=== PATIENT | female | born 1980 | race Caucasian/White ===

== ENCOUNTER 2021-03-10 13:01 | Inpatient (IN) | payer OTHER ==
[~2021-03-10] VITALS: Ht 165.1 cm; Wt 95.5 kg
[2021-03-10 13:30] LABS: BASOPHILS ABSOLUTE AUTO 0.08 K/mm3 (0.00-0.23); BASOPHILS PERCENT AUTO 1 % (0-2); EOSINOPHILS ABSOLUTE AUTO 0.03 K/mm3 (0.00-0.68); EOSINOPHILS PERCENT AUTO 0 % (0-6); Hematocrit 42.7 % (33.0-51.0); Hemoglobin 14.6 g/dL (11.5-16.0); IMMATURE GRAN ABSOLUTE AUTO 0.03 K/mm3 (0.00-0.10); IMMATURE GRAN PERCENT AUTO 0 % (0-1); LYMPHOCYTES ABSOLUTE AUTO 0.92 K/mm3 (0.84-5.20); LYMPHOCYTES PERCENT AUTO 8 % (21-46); MONOCYTES ABSOLUTE AUTO 0.78 K/mm3 (0.16-1.47); MONOCYTES PERCENT AUTO 7 % (4-13); Mean Corpuscular HGB 27.8 pg (26.0-34.0); Mean Corpuscular HGB Conc 34.2 g/dL (31.5-36.5); Mean Corpuscular Volume 81 fL (80-100); Mean Platelet Volume 9.9 fL (9.1-12.4); NEUTROPHILS PERCENT AUTO 84 % (41-73); Platelet Count 514 K/mm3 (150-400); RDW Coefficient Variation 14.3 % (11.7-14.2); RDW Standard Deviation 41.8 fL (35.1-46.3); Red Blood Cell Count 5.26 M/mm3 (3.80-5.20); White Blood Cell Count 11.24 K/mm3 (4.00-11.30)
[2021-03-10] MEDS ORDERED: ATOR20 PO (13:45)
[2021-03-10] MEDS ORDERED: TOPROL XL200 MG PO (13:45)
[2021-03-10] MEDS ORDERED: FERROUS SULFAT325 M3 PO (13:46)
[2021-03-10] MEDS ORDERED: METF500 PO (13:46)
[2021-03-10] MEDS ORDERED: LISI20 PO (13:47)
[2021-03-10] MEDS ORDERED: GLIP10 PO (13:47)
[2021-03-10] MEDS ORDERED: AMLO5 PO (13:47)
[2021-03-10] MEDS ORDERED: HYDCHL25 PO (13:47)
[2021-03-10 14:15] LABS: Albumin, Blood 2.9 g/dL (3.4-5.0); Albumin/Globulin Ratio 0.5 (0.8-1.8); Bilirubin, Total 0.5 mg/dL (0.1-1.0); Bun/Creatinine Ratio 10.5 (12.0-20.0); Calcium, Blood 9.4 mg/dL (8.5-10.1); Creatinine, Blood 8.55 mg/dL (0.40-1.00); Globulin, Blood 5.7 g/dL (2.2-4.0); Potassium, Blood 2.9 mmol/L (3.5-5.5); Total Protein, Blood 8.6 g/dL (6.4-8.2)
[2021-03-10 14:58] LABS: Magnesium, Blood 1.8 mg/dL (1.6-2.4); Phosphorus, Blood 6.7 mg/dL (2.5-4.9)
[2021-03-10 15:16] LABS: Base Excess Venous -8.8 mmol/L; Bicarbonate Venous 18.3 mmol/L (24.0-30.0); PCO2 Venous 32.9 mmHg (38-42); PO2 Venous 108 mmHg (38-42); pH Blood Venous 7.33 (7.34-7.37)
[2021-03-10 15:20] LABS: Influenza A, PCR NEGATIVE (NEGATIVE); Influenza B, PCR NEGATIVE (NEGATIVE); Resp Syncytial Virus, PCR NEGATIVE (NEGATIVE); SARS-Cov-2 (COVID-19) PCR, MMC POSITIVE (NEGATIVE)
[2021-03-10 15:24] LABS: Source, Urine Clean Catch
[2021-03-10 15:29] LABS: Appearance, Urine Hazy (Clear); Bilirubin, Urine Neg (Neg); Blood, Urine 2+ (Neg); Color, Urine Yellow (P-Yellow); Glucose Qualitative, Urine 2+ (Neg); Ketones, Urine 1+ (Neg); Leukocyte Esterase, Urine 1+ (Neg); Nitrite, Urine Neg (Neg); Protein, Urine 2+ (Neg); Urobilinogen, Urine NORM (Normal)
[2021-03-10 15:40] LABS: Amorphous Light (0-Heavy); Bacteria Mod /hpf; Squamous Epithelial Cells Few /hpf (Few); Transitional Epithelial Cells Few /hpf (0-Rare)
[2021-03-10 16:12] LABS: Triglycerides 593 mg/dL (30-160)
--- NOTE | 2021-03-10 19:25 | NUR ---
Mrs Cameron Logan is 41 year old female with history significant for diabetes type 2 , hypertension and hyperlipidemia who is admitted for acute kidney injury related to nausea and vomiting that is ongoing for several days. Patient initially presented to ER with nausea and vomiting and unable to hold food in her abdomen.Lab result from ER shows elevated lipase 1609 , triglyceride 593 , BUN 90 , creatinine 8.[address] shows bilateral covid/PNA. She was transferred to medical floor room 328 for further evaluation and treatment. During admission assessment, patient is alert and oriented x4 ,able to verbalize needs. Reports that for past two weeks she has nausea and vomiting and is especially worse in the last two days. Reports that mid abdomen pain is improved but still could not eat due to nausea and vomiting. She reports taking hypertensive medications , diabetes meds and lipitor for hyperlipidemia. Denies any shortness of breath , headache ,chest pain and dizziness. Blood glucose was 251 , 3 units lispro was given. IV NS infusing at 150 ml/hr concurrently with potassium. Tele monitor is place , with sinus rhythm 90s. On clear liquid diet . On isolation for COVID-19 positive result. Vital signs are stable. Call light within reach. Continue to monitor.
[2021-03-10 19:37] LABS: Bun/Creatinine Ratio 13.1 (12.0-20.0); Calcium, Blood 8.3 mg/dL (8.5-10.1); Creatinine, Blood 6.59 mg/dL (0.40-1.00); Potassium, Blood 3.6 mmol/L (3.5-5.5)
[2021-03-11 00:37] LABS: Source, Urine Clean Catch
[2021-03-11 01:19] LABS: Appearance, Urine Clear (Clear); Bilirubin, Urine Neg (Neg); Blood, Urine 2+ (Neg); Color, Urine Yellow (P-Yellow); Glucose Qualitative, Urine 3+ (Neg); Ketones, Urine 1+ (Neg); Leukocyte Esterase, Urine Neg (Neg); Nitrite, Urine Neg (Neg); Protein, Urine 1+ (Neg); Urobilinogen, Urine NORM (Normal)
[2021-03-11 01:30] LABS: U Amphetamine Screen Not Detected; U Barbituate Screen Not Detected; U Benzodiazapine Screen Not Detected; U Buprenorphine Screen Not Detected; U Cannabinoids Screen Not Detected; U Cocaine Screen Not Detected; U Methadone Screen Not Detected; U Methamphetamine Screen Not Detected; U Opiates Screen Not Detected; U Oxycodone Screen Not Detected; U Phencyclidine Screen Not Detected; U Propoxyphene Screen Not Detected
[2021-03-11 01:36] LABS: Amorphous Light (0-Heavy); Bacteria Mod /hpf; Red Blood Cells, Urine 0-2 /hpf (0-2); Squamous Epithelial Cells Few /hpf (Few); Uric Acid Crystals Few /hpf
--- NOTE | 2021-03-11 04:36 | NUR ---
SHIFT SUMMARY AOX4. VSS. TELE NSR. DENIES PAIN, SOB OR ANY NAUSEA @THIS TIME. PT ABLE TO TOLERATE PO FLUIDS W/O ANY EMESIS. COVID +. SPO2 >95% ON RA. E/U RESP. LS DIM IN BASES. OCC DRY NONPRODUCTIVE COUGH. CALL LIGHT IN REACH. WCTM UNTIL DAY NURSE ASSUMES CARE.
[2021-03-11 06:21] LABS: Albumin, Blood 2.6 g/dL (3.4-5.0); Albumin/Globulin Ratio 0.6 (0.8-1.8); Bilirubin, Total 0.5 mg/dL (0.1-1.0); Bun/Creatinine Ratio 15.7 (12.0-20.0); Calcium, Blood 8.3 mg/dL (8.5-10.1); Creatinine, Blood 4.72 mg/dL (0.40-1.00); Globulin, Blood 4.5 g/dL (2.2-4.0); Magnesium, Blood 1.4 mg/dL (1.6-2.4); Phosphorus, Blood 3.9 mg/dL (2.5-4.9); Potassium, Blood 3.7 mmol/L (3.5-5.5); Total Protein, Blood 7.1 g/dL (6.4-8.2)
[2021-03-11 07:01] LABS: Hematocrit 38.6 % (33.0-51.0); Mean Corpuscular HGB Conc 33.7 g/dL (31.5-36.5); Mean Corpuscular Volume 83 fL (80-100); Mean Platelet Volume 10.4 fL (9.1-12.4); Platelet Count 452 K/mm3 (150-400); RDW Coefficient Variation 14.4 % (11.7-14.2); RDW Standard Deviation 43.3 fL (35.1-46.3); Red Blood Cell Count 4.65 M/mm3 (3.80-5.20); White Blood Cell Count 8.12 K/mm3 (4.00-11.30)
[2021-03-11 16:20] LABS: Creatinine, Urine Random 90.2 mg/dL (27.00-270.00)
--- NOTE | 2021-03-11 17:18 | NUR ---
SHIFT SUMMARY PT IS A&O, PLEASANT AND CO-OP. UP INDEPENDENTLY TO BTHRM. PT ON CLEAR LIQUID DIET AT START OF SHIFT. TOLERATED WELL AND REQUESTED DIET TO BE ADVANCED, PER ORDERS. ADVANCED TO SOFT/FULL LIQUID PER REQUEST. PT TOLERATED WELL TO PRESENT. PT REPORTED THAT SHE WASN'T READY TO GO TO REGULAR FOOD JUST YET, BUT DID REPORT BEING HUNGRY NOW. NO N/V/D THIS SHIFT. PT ON IVF'S AT START OF SHIFT UNTIL 12:[address] NEAL IN TO SEE PT AT 1400. IVF'S CHANGED TO LR AT [address] DOWN AT THAT TIME, NOT ALLOWING ORDERS TO GO THRU. LR DELAYED ONE HR. PT DRINKING WELL ALL DAY. URINE CX'S ORDERED AND SENT. SR ON TELE. NO C/O PAIN OR DIFFICULTY. DENIES FURTHER NEEDS AT THIS TIME. CALL LT IN REACH.
--- NOTE | 2021-03-12 04:34 | NUR ---
SHIFT SUMMARY PATIENT HAD NO ACUTE CHANGES. AXOX 4 AND INDEPENDENT IN ROOM. PIV REMAINS INTACT. LR INFUSING AT 75mL/HR. FOOD AND BEVERAGE MANAGER REPORTS NSR 80. ON ROOM AIR STATING 92% ON CONTINUOUS PULSE OXIMETRY. HR DROPS TO HIGH 40'S SLEEPING AT TIMES AND BACK INTO THE 50'S PLUS AWAKE. DENIES PAIN, SOB, AND N/V. VSS/AFEBRILE. COOPERATIVE WITH CARE. CALL LIGHT IN REACH. BED IN LOWEST POSITION. WILL CONTINUE TO MONITOR UNTIL DAY SHIFT NURSE ASSUMES CARE.
[2021-03-12 05:23] LABS: Base Excess Venous 0.2 mmol/L; Bicarbonate Venous 24.3 mmol/L (24.0-30.0); PCO2 Venous 40.9 mmHg (38-42); PO2 Venous 53.4 mmHg (38-42)
[2021-03-12 05:56] LABS: Bun/Creatinine Ratio 20.4 (12.0-20.0); Creatinine, Blood 2.25 mg/dL (0.40-1.00); Potassium, Blood 2.9 mmol/L (3.5-5.5)
--- NOTE | 2021-03-12 15:46 | NUR ---
SHIFT SUMMARY NO ACUTE CHANGES TO PRESENT. PT CONTINUES TO IMPROVE. EATING AND DRINKING WELL AND TOLERATING DIET. UP INDEPENDENTLY TO BTHRM AND AROUND RM. SITTING IN CHAIR AT BS FOR MEALS. IVF'S CONTINUE TO INFUSE PER EMAR. KIDNEY FUNCTION IMPROVING; SEE CHART. NO C/O. DENIES FURTHER NEEDS. CALL LT IN REACH. POSSIBLE D/C TOMORROW.
--- NOTE | 2021-03-13 04:40 | NUR ---
A/OX4. PIV RT AC LR @75mL/hr, INDEPENDENT IN ROOM, RA, BLOOD GLUCOSE RISING DURING 03/12 - MD NOTIFIED & CHANGED LOW SS TO MEDIUM. POSSIBLE DC 03/13.
[2021-03-13 06:20] LABS: Bun/Creatinine Ratio 19.4 (12.0-20.0); Calcium, Blood 7.9 mg/dL (8.5-10.1); Creatinine, Blood 1.55 mg/dL (0.40-1.00); Phosphorus, Blood 2.9 mg/dL (2.5-4.9)
[2021-03-13 06:36] LABS: Magnesium, Blood 0.8 mg/dL (1.6-2.4)
--- NOTE | 2021-03-13 06:50 | NUR ---
NIGHT HOSPITALIST WAS CALLED ABOUT MG OF 0.8 BUT THERE WAS NO RETURN CALL.
[2021-03-13 13:48] LABS: Bun/Creatinine Ratio 18.8 (12.0-20.0); Calcium, Blood 7.8 mg/dL (8.5-10.1); Creatinine, Blood 1.33 mg/dL (0.40-1.00); Magnesium, Blood 1.9 mg/dL (1.6-2.4)
[2021-03-14 05:30] LABS: BASOPHILS ABSOLUTE AUTO 0.07 K/mm3 (0.00-0.23); BASOPHILS PERCENT AUTO 1 % (0-2); EOSINOPHILS ABSOLUTE AUTO 0.11 K/mm3 (0.00-0.68); EOSINOPHILS PERCENT AUTO 2 % (0-6); Hematocrit 35.8 % (33.0-51.0); Hemoglobin 12.2 g/dL (11.5-16.0); IMMATURE GRAN ABSOLUTE AUTO 0.01 K/mm3 (0.00-0.10); IMMATURE GRAN PERCENT AUTO 0 % (0-1); LYMPHOCYTES PERCENT AUTO 29 % (21-46); MONOCYTES ABSOLUTE AUTO 0.37 K/mm3 (0.16-1.47); MONOCYTES PERCENT AUTO 8 % (4-13); Mean Corpuscular HGB 28.3 pg (26.0-34.0); Mean Corpuscular HGB Conc 34.1 g/dL (31.5-36.5); Mean Corpuscular Volume 83 fL (80-100); NEUTROPHILS ABSOLUTE AUTO 2.93 K/mm3 (1.96-9.15); NEUTROPHILS PERCENT AUTO 60 % (41-73); Platelet Count 326 K/mm3 (150-400); RDW Coefficient Variation 13.9 % (11.7-14.2); RDW Standard Deviation 42.2 fL (35.1-46.3); Red Blood Cell Count 4.31 M/mm3 (3.80-5.20); White Blood Cell Count 4.89 K/mm3 (4.00-11.30)
[2021-03-14 05:56] LABS: Bun/Creatinine Ratio 15.5 (12.0-20.0); Calcium, Blood 8.1 mg/dL (8.5-10.1); Creatinine, Blood 1.16 mg/dL (0.40-1.00); Magnesium, Blood 1.3 mg/dL (1.6-2.4); Phosphorus, Blood 2.7 mg/dL (2.5-4.9); Potassium, Blood 3.3 mmol/L (3.5-5.5)
[2021-03-14] MEDS ORDERED: INSULANPEN SC (10:34)
[2021-03-14] MEDS ORDERED: METO100ER PO (10:36)
[2021-03-14] MEDS ORDERED: POTA10T PO (10:36)
== END 2021-03-14 12:22 | disposition home or self-care (01) | DRG 177 ==
LOC: ER 13:01 → MEDS 15:31 → ER 16:42 → MEDS 16:55
PROVIDERS: Internal Medicine; Nurse Practitioner Acute Care; Physician Assistant; ADMIT Family Medicine
PROC: 8E0ZXY6 Isolation (ICD-10-PCS; principal; 2021-03-10)
DX: U07.1 COVID-19 (principal); K85.90 Acute pancreatitis without necrosis or infection, unspecified; N17.0 Acute kidney failure with tubular necrosis; E87.2 Acidosis; A08.39 Other viral enteritis; E86.0 Dehydration; I12.9 Hypertensive chronic kidney disease with stage 1 through stage 4 chronic kidney disease, or unspecified chronic kidney disease; N18.30 Chronic kidney disease, stage 3 unspecified; E78.00 Pure hypercholesterolemia, unspecified; E87.6 Hypokalemia; D50.9 Iron deficiency anemia, unspecified; E11.22 Type 2 diabetes mellitus with diabetic chronic kidney disease; E66.01 Morbid (severe) obesity due to excess calories; E83.42 Hypomagnesemia; Z68.34 Body mass index [BMI] 34.0-34.9, adult; Z90.49 Acquired absence of other specified parts of digestive tract; Z98.890 Other specified postprocedural states; Z79.84 Long term (current) use of oral hypoglycemic drugs; Z79.899 Other long term (current) drug therapy
CPT/HCPCS: 0241U; 36415; 71045; 74176; 80048; 80053; 81001; 82150; 82550; 82570; 82803; 82947; 83605; 83690; 83735; 83970; 84100; 84300; 84478; 85025; 85027; 87086; 94760; 94762; 96361; 96365; 96366; 96375; 96376; 99285-25; A9270; C9113; J1644; J1815; J2405; J3475; J3480; J7030; J7120

== ENCOUNTER 2022-02-10 08:55 | Inpatient (IN) | payer OTHER ==
[~2022-02-10] VITALS: Ht 167.6 cm; Wt 115.6 kg
[~2022-02-10 08:55] MED LIST: AMLO5 PO; ATOR20 PO; FERROUS SULFAT325 M3 PO; GLIP10 PO; HYDCHL25 PO; INSULANPEN SC; LISI20 PO; METF500 PO; METO100ER PO; POTA10T PO; TOPROL XL200 MG PO
[2022-02-10 10:06] LABS: Hematocrit 38.6 % (33.0-51.0); Hemoglobin 12.8 g/dL (11.5-16.0); Mean Corpuscular HGB 27.7 pg (26.0-34.0); Mean Corpuscular HGB Conc 33.2 g/dL (31.5-36.5); Mean Corpuscular Volume 84 fL (80-100); Mean Platelet Volume 10.8 fL (9.1-12.4); Platelet Count 213 K/mm3 (150-400); RDW Coefficient Variation 13.9 % (11.7-14.2); RDW Standard Deviation 42.5 fL (35.1-46.3); Red Blood Cell Count 4.62 M/mm3 (3.80-5.20); White Blood Cell Count 11.76 K/mm3 (4.00-11.30)
[2022-02-10 10:30] LABS: Albumin, Blood 1.9 g/dL (3.4-5.0); Albumin/Globulin Ratio 0.4 (0.8-1.8); Beta-hydroxybutyrate 14.3 mg/dL (0.2-2.8); Bilirubin, Total 0.5 mg/dL (0.1-1.0); Bun/Creatinine Ratio 20.1 (12.0-20.0); Creatinine, Blood 1.99 mg/dL (0.40-1.00); Globulin, Blood 5.1 g/dL (2.2-4.0); Potassium, Blood 3.3 mmol/L (3.5-5.5)
[2022-02-10 10:44] LABS: International Normalized Ratio 1.12; Prothrombin Time Results 11.7 Sec (9.7-11.5)
[2022-02-10 10:45] LABS: Influenza A, PCR NEGATIVE (NEGATIVE); Influenza B, PCR NEGATIVE (NEGATIVE); Resp Syncytial Virus, PCR NEGATIVE (NEGATIVE); SARS-Cov-2 (COVID-19) PCR, MMC NEGATIVE (NEGATIVE)
[2022-02-10 10:55] LABS: Base Excess Venous -1.5 mmol/L; Bicarbonate Venous 23.1 mmol/L (24.0-30.0); PCO2 Venous 38.3 mmHg (38-42); pH Blood Venous 7.39 (7.34-7.37)
[2022-02-10 11:00] LABS: BAND PERCENT MAN 7 % (0-8); BASOPHILS PERCENT MAN 0 % (0-2); EOSINOPHILS PERCENT MAN 0 % (0-6); LYMPHOCYTES ABSOLUTE MAN 0.35 K/mm3 (0.84-5.20); LYMPHOCYTES PERCENT MAN 3 % (21-46); METAMYELOCYTE ABSOLUTE MAN 0.11 K/mm3 (0.00-0.00); METAMYELOCYTE PERCENT MAN 1 % (0-0); MONOCYTES ABSOLUTE MAN 0.35 K/mm3 (0.16-1.47); MONOCYTES PERCENT MAN 3 % (4-13); MYELOCYTE ABSOLUTE MAN 0.11 K/mm3 (0.00-0.00); MYELOCYTE PERCENT MAN 1 % (0-0); NEUTROPHILS ABSOLUTE MAN 10.81 K/mm3 (1.96-9.15); SEG NEUTROPHILS PERCENT MAN 85 % (41-73); TOTAL CELLS COUNTED 100
[2022-02-10 13:34] LABS: Source, Urine Clean Catch
[2022-02-10 13:38] LABS: Appearance, Urine Cloudy (Clear); Bilirubin, Urine Neg (Neg); Blood, Urine 5+ (Neg); Color, Urine Yellow (P-Yellow); Glucose Qualitative, Urine 3+ (Neg); Ketones, Urine 1+ (Neg); Leukocyte Esterase, Urine 2+ (Neg); Nitrite, Urine Neg (Neg); Protein, Urine 3+ (Neg); Urobilinogen, Urine NORM (Normal)
[2022-02-10 13:53] LABS: Bacteria Many /hpf; Red Blood Cells, Urine TNTC /hpf (0-2); Squamous Epithelial Cells Few /hpf (Few); Transitional Epithelial Cells Few /hpf (0-Rare)
[2022-02-10 18:32] LABS: Source, Urine Foley catheter
--- NOTE | 2022-02-10 18:32 | NUR ---
NEREIDA CAME TO THE ICU VIA GURNEY, SITTING IN SEMI MARTINEZ'S POSITION, BREATHING RAPIDLY, RATE 30-40, SATS LOW 90S, PT IS ABLE TO ANSWER QUESTIONS WITH VISIBLE DYSPNEA. PT IS ASSESSED AND EDUCATION OF WHAT IS HAPPENING, DISEASE PROCESS, MEDICATION, ICU COURSE OF TREATMENT. PT WITH DIMINISHED, TIGHT LUNG SOUNDS WITH FINE CRACKLES IN THE BASES, COMPLAINTS OF HUNGER, BUT KNOWS SHE IS HAVING A DIFFICULT TIME BREATHING. SHE IS ON 9L HFNC. WHEN PT ATTEMPTS TO SWALLOW SHE GAGS AND COUGHS, SAYS HER THROAT HAS BEEN INCREDIBLY SORE. LAB CALLS VALUES BACK OF TROPONIN AND LACTIC ACID, CALLED TO , ORDERS RECEIVED. PT GIVEN BOLUS DOSES OF NS PER ORDERS AND STARTED ON VANCOMYCIN. PT WITH PIV 22G IN RIGHT HAND, LEFT AC WITH 20G. PT TOLERATING THE FLUID BOLUS WELL. ZHU CATH PLACED FOR PATIENT COMFORT AND TO DECREASE THE ENERGY EXERTION. PT TOLERATED WELL, WAS UNABLE TO LIE FLAT FOR PROCEDURE. URINE SENT TO LAB. PT STATED SHE WAS "OVER" THE HFNC AND WANTED SOMETHING DIFFERENT. NRB @ 12L PLACED WITH SATS MAINTAINING. SECOND FLUID BOLUS INFUSING.
[2022-02-10 19:01] LABS: Appearance, Urine Hazy (Clear); Bilirubin, Urine Neg (Neg); Blood, Urine 5+ (Neg); Color, Urine Yellow (P-Yellow); Glucose Qualitative, Urine 1+ (Neg); Ketones, Urine 1+ (Neg); Leukocyte Esterase, Urine Neg (Neg); Nitrite, Urine Neg (Neg); Protein, Urine 3+ (Neg); Urobilinogen, Urine NORM (Normal)
--- NOTE | 2022-02-10 19:01 | NUR ---
NEREIDA FELT LIKE SHE NEEDED TO HAVE A BOWEL MOVEMENT. SHE HAD A SLIGHT PANIC ATTACK SHE WAS USING THE BEDPAN, HAD A SMALL ACCIDENT AND IS NOW SITTING ON THE EDGE OF THE BED.
[2022-02-10 19:25] LABS: Hyaline Casts 0-2 /lpf (0-2); White Blood Cells, Urine 0-2 /hpf (0-5)
[2022-02-10 19:27] LABS: Amorphous Heavy (0-Heavy); Bacteria Few /hpf; Squamous Epithelial Cells Few /hpf (Few)
--- NOTE | 2022-02-10 20:10 | NUR ---
Assume Care Pt A&Ox4. No complaints of chest pain, numbness/tingling, headache, vision changes or general pain. Pt dyspneic at rest. Temp on arrival 104. Ice packs placed, cooling blanket utilized and prn meds given.
--- NOTE | 2022-02-10 20:21 | NUR ---
[facility] [place] [facility]
[2022-02-11 03:52] LABS: Hemoglobin 12.5 g/dL (11.5-16.0); Mean Corpuscular HGB 28.7 pg (26.0-34.0); Mean Corpuscular HGB Conc 33.8 g/dL (31.5-36.5); Mean Corpuscular Volume 85 fL (80-100); Mean Platelet Volume 10.6 fL (9.1-12.4); Platelet Count 219 K/mm3 (150-400); RDW Coefficient Variation 14.5 % (11.7-14.2); RDW Standard Deviation 45.1 fL (35.1-46.3); Red Blood Cell Count 4.36 M/mm3 (3.80-5.20)
[2022-02-11 04:05] LABS: Bun/Creatinine Ratio 21.1 (12.0-20.0); Calcium, Blood 8.1 mg/dL (8.5-10.1); Creatinine, Blood 1.8 mg/dL (0.40-1.00); Magnesium, Blood 1.7 mg/dL (1.6-2.4); Potassium, Blood 3.4 mmol/L (3.5-5.5)
[2022-02-11 04:25] LABS: BAND PERCENT MAN 15 % (0-8); BASOPHILS PERCENT MAN 0 % (0-2); EOSINOPHILS PERCENT MAN 0 % (0-6); LYMPHOCYTES ABSOLUTE MAN 0.37 K/mm3 (0.84-5.20); LYMPHOCYTES PERCENT MAN 3 % (21-46); MONOCYTES PERCENT MAN 0 % (4-13); NEUTROPHILS ABSOLUTE MAN 12.12 K/mm3 (1.96-9.15); SEG NEUTROPHILS PERCENT MAN 82 % (41-73); TOTAL CELLS COUNTED 100
--- NOTE | 2022-02-11 05:43 | NUR ---
END OF SHIFT REPORT NEURO: PT A&OX4. PLEASANT AND COOPERATIVE, MAKES NEEDS KNOWN. CARDIAC: REMAINS TACHYCARDIC 120-140 BPM. PRN HYDRALIZINE FOR SBP > 160. INITIAL TEMPERATURE OF 104 AT START OF SHIFT BEING MANAGED WITH TYLENOL AND COOLING BLANKET, LAST GATHERED WAS 100.8. NO COMPLAINTS OF CHEST PAIN. RESPIRATORY: CRACKLES THROUGHOUT. TACHYPNEIC AND DYSPNEIC AT REST. 11L OXYMIZER. NONPRODUCTIVE COUGH. GI/: ZHU CATH IN PLACE. PUTTING OUT ADEQUATE CLEAR YELLOW URINE. TWO BOWEL MOVEMENTS OVERNIGHT. LOOSE, BROWN AND TINGED WITH SCANT BLOOD. MUSCULOSKELETAL: FULL STRENGTH IN ALL FOUR LIMBS, UP TO BEDSIDE COMMODE WITH 1 ASSIST. RESPIRATORY STATUS IS LIMITING FACTOR. INTEGUMENTARY: BLANCHABLE RED COCCYX. PT ASSISTING WITH SHIFTING HIPS AND PLACING PILLOWS TO MITIGATE fLUIDS: NS 125 ML/HR
[2022-02-11 13:17] LABS: Albumin, Blood 1.7 g/dL (3.4-5.0); Anion Gap 12 mmol/L (6-16); Blood Urea Nitrogen 30 mg/dL (8-24); Bun/Creatinine Ratio 23.1 (12.0-20.0); CO2, Blood 22 mmol/L (21-32); Calcium, Blood 8.4 mg/dL (8.5-10.1); Chloride, Blood 102 mmol/L (98-108); Glomerular Filtration Rate 52 (60-); Glucose, Blood 246 mg/dL (70-99); Phosphorus, Blood 1.6 mg/dL (2.5-4.9); Potassium, Blood 3.6 mmol/L (3.5-5.5); Sodium, Blood 136 mmol/L (136-145)
[2022-02-11 14:32] LABS: PCO2 Arterial 40.4 mmHg (35-45); PO2 Arterial 70.4 mmHg (80-100); pH Blood Arterial 7.37 (7.35-7.45)
--- NOTE | 2022-02-11 15:20 | NUR ---
PT PLACED IN PRONE POSITION
[2022-02-11 18:22] LABS: SARS-Cov-2 (COVID-19) PCR, MMC NEGATIVE (NEGATIVE)
--- NOTE | 2022-02-11 18:49 | NUR ---
SHIFT SUMMARY NEURO: WNL CARDIAC: HR 120-130'S THROUGHOUT SHIFT, NORMOTENSIVE, PULSES PRESENT. TROPONINS TRENDING UP. LUNGS: PT STARTED ON 9L OXIMIZER, THEN INCREASED TO 15L, NOW CURRENTLY ON BIPAP 70%/5. TACHYPNEIC INTO 30'S/40'S. PT STATED DECREASED IN SOB WHILE PRONED. GI: SCANT BLEEDING DURING BM. BOTH COFFEE GROUND BLACK AND TRACE MAROON. : ZHU IN PLACE BLEEDING NOTED ON PT'S GUMS AND NOSE WELL.
[2022-02-12 03:43] LABS: Hematocrit 34.6 % (33.0-51.0); Hemoglobin 11.5 g/dL (11.5-16.0); Mean Corpuscular HGB 28.7 pg (26.0-34.0); Mean Corpuscular HGB Conc 33.2 g/dL (31.5-36.5); Mean Corpuscular Volume 86 fL (80-100); Mean Platelet Volume 10.3 fL (9.1-12.4); Platelet Count 223 K/mm3 (150-400); RDW Coefficient Variation 14.9 % (11.7-14.2); RDW Standard Deviation 47.5 fL (35.1-46.3); Red Blood Cell Count 4.01 M/mm3 (3.80-5.20); White Blood Cell Count 11.72 K/mm3 (4.00-11.30)
[2022-02-12 04:02] LABS: Anion Gap 11 mmol/L (6-16); Blood Urea Nitrogen 23 mg/dL (8-24); Bun/Creatinine Ratio 20.2 (12.0-20.0); CO2, Blood 22 mmol/L (21-32); Calcium, Blood 8.2 mg/dL (8.5-10.1); Chloride, Blood 104 mmol/L (98-108); Creatinine, Blood 1.14 mg/dL (0.40-1.00); Glomerular Filtration Rate 61 (60-); Glucose, Blood 261 mg/dL (70-99); Phosphorus, Blood 1.6 mg/dL (2.5-4.9); Potassium, Blood 3.5 mmol/L (3.5-5.5); Sodium, Blood 137 mmol/L (136-145)
[2022-02-12 04:50] LABS: BAND PERCENT MAN 15 % (0-8); BASOPHILS PERCENT MAN 0 % (0-2); EOSINOPHILS PERCENT MAN 0 % (0-6); LYMPHOCYTES ABSOLUTE MAN 0.58 K/mm3 (0.84-5.20); LYMPHOCYTES PERCENT MAN 5 % (21-46); MONOCYTES ABSOLUTE MAN 0.23 K/mm3 (0.16-1.47); MONOCYTES PERCENT MAN 2 % (4-13); NEUTROPHILS ABSOLUTE MAN 10.89 K/mm3 (1.96-9.15); SEG NEUTROPHILS PERCENT MAN 78 % (41-73); TOTAL CELLS COUNTED 100
--- NOTE | 2022-02-12 06:31 | NUR ---
END OF SHIFT REPORT NS 125 ML/HR KPHOS 100 ML/HR NEURO: A&OX4. FULL MOVEMENT AND SENSATION IN ALL FOUR EXTREMITIES. NO COMPLAINTS OF NUMBNESS/TINGLING, HEADACHE OR VISION CHANGES. CARDIAC: TACHYCARDIC 120-140 BPM. SBP REMAINED BELOW 160. NO COMPLAINTS OF CHEST PAIN OVERNIGHT. RESPIRATORY: HFNC 70% 30L. APPRECIATED BILATERAL CRACKLES AND RHONCHI. MOIST UNPRODUCTIVE COUGH. DYSPNEA AT REST. TACHYPNEIC. GI: CONTINENT OF BOWELS. ONE GELATINOUS BROWN/GREEN STOOL AT START OF SHIFT. : HZU IN PLACE. PROGRESSIVELY MORE PINK URINE OUTPUT OVERNIGHT. HAZY WITH SEDIMENT NOTED. MUSCULOSKELETAL: GENERALIZED WEAKNESS. FULL MOBILITY IN ALL FOUR EXTREMITIES. ONE ASSIST TO BEDSIDE COMMODE OR CHAIR. INTEGUMENTARY: BLANCHABLE COCCYX. PILLOWS PLACED AND TURNED FREQUENTLY. PATIENT CAPABLE OF TURNING SELF. EXCORIATION AND REDNESS NOTED TO LEFT INGUINAL REGION. PSYCHOSOCIAL: COOPERATIVE AND FOLLOWS COMMANDS. PT SLEPT 2-3 HOURS INTERMITTENTLY OVERNIGHT.
--- NOTE | 2022-02-12 07:15 | NUR ---
ASSUME CARE ZOSYN AT 12.5 ML/HR. NS AT 125 ML/HR. PT A&OX4. NO COMPLAINTS OF CHEST PAIN, NUMBNESS/TINGLING, VISION CHANGES OR HEADACHE. DYSPNEIC AT REST. GENERALIZED WEAKNESS IN ALL FOUR EXTREMITIES AND FULL SENSATION.
--- NOTE | 2022-02-12 08:00 | NUR ---
PT A&OX4-PT SITTING AT THE EDGE OF THE BED. APPEARS VERY TACHYPNEIC AND DIAPHORETIC. RR 38. SPEAKING IN BROKEN SENTENCES. LUNGS WITH CRACKLES L>R. CXR DONE. PT HAS MOIST, NONPRODUCTIVE COUGH. SATS 88-90% ON AIRVO 30 LITERS/FIO2 70%. PT ASSISTED OOB TO CHAIR USING WALKER-INCREASED DYSPNEA AND TACHYPNEA WITH EXERTION. PT 2 PERSON ASSIST OOB. NO GI DISTRESS. PT REPORTS THAT IT IS DIFFICULT TO EAT WHEN SO SHORT OF BREATH. CBG 228 COVERED PER SLIDING SCALE-SEE EMAR. ABDOMEN OBESE WITH RED, YEAST-LIKE RASH TO PANUS/GROIN/SKIN FOLDS. PT INCONTINENT OF A SMALL AMOUNT OF BROWN, LIQUID STOOL. TUAN AND CATH CARE COMPLETED AND NEW HUSAIN PLACED. CALL LIGHT WITHIN REACHL. PT ABLE TO COMMUNICATE HER NEEDS WELL.
[2022-02-12 08:33] LABS: Vancomycin, Random 8.1 ug/mL
--- NOTE | 2022-02-12 10:00 | NUR ---
ASSISTED BACK TO BED AND PLACED ON BIPAP 10/5-FIO2 70% CALL LIGHT IN PT RIGHT HAND.
--- NOTE | 2022-02-12 12:00 | NUR ---
ASSISTED PT OOB TO CHAIR WITH WALKER. PT PLACED ON AIRVO 30 LITERS/FIO2 70%. BP 172/88-METOPROLOL AND NORVASC GIVEN-SEE EMAR. LUNCH TRAY PROVIDED AND CALL LIGHT WITHIN REACH.
--- NOTE | 2022-02-12 12:15 | NUR ---
PT ATE 10% OF LUNCH TRAY. CONTINUES TO REPORT POOR APPETITE. CBG 254-COVERED PER SLIDING SCALE-SEE EMAR. SATS>90% ON AIRVO 30 LITERS/FIO2 70%. PT REPORTS DESIRE TO REMAIN IN CHAIR. CALL LIGHT IN REACH-PT AGREES TO CALL FOR ASSIST PRN.
--- NOTE | 2022-02-12 16:30 | NUR ---
PT REMAINS A&OX4-DENIES PAIN. REMAINS TACHYPNEIC. INCREASED DYSPNEA ON EXERTION. BP 166/86. HR 100'S-ST. RR 32-44. SATS>90% ON AIRVO 30 LITERS/FIO2 70%. COUGH REMAINS MOIST AND NONPRODUCTIVE. EXTENDED DWELL CATHETER PLACE, PT GIVEN SPONGE BATH, SHAMPOO, LINEN CHANGE COMPLETED. ASSISTED PT OOB TO CHAIR-TOLERATED WELL OVERALL. CALL LIGHT WITHIN REACH-PT USES CALL LIGHT APPROPRIATELY.
--- NOTE | 2022-02-13 01:37 | NUR ---
PT IN SINUS ARRHYTHMIA. ABRIL REMAINS THE SAME. TIMING CHANGING BETWEEN VARIOUS T AND P WAVES, AND WITH IT R TO R. SEE SAVED FILE.
[2022-02-13 05:14] LABS: BASOPHILS ABSOLUTE AUTO 0.06 K/mm3 (0.00-0.23); BASOPHILS PERCENT AUTO 1 % (0-2); EOSINOPHILS ABSOLUTE AUTO 0.12 K/mm3 (0.00-0.68); EOSINOPHILS PERCENT AUTO 1 % (0-6); Hematocrit 32.1 % (33.0-51.0); Hemoglobin 10.3 g/dL (11.5-16.0); IMMATURE GRAN PERCENT AUTO 3 % (0-1); LYMPHOCYTES ABSOLUTE AUTO 0.66 K/mm3 (0.84-5.20); LYMPHOCYTES PERCENT AUTO 6 % (21-46); MONOCYTES ABSOLUTE AUTO 0.17 K/mm3 (0.16-1.47); MONOCYTES PERCENT AUTO 2 % (4-13); Mean Corpuscular HGB 27.8 pg (26.0-34.0); Mean Corpuscular HGB Conc 32.1 g/dL (31.5-36.5); Mean Corpuscular Volume 87 fL (80-100); Mean Platelet Volume 10.5 fL (9.1-12.4); NEUTROPHILS ABSOLUTE AUTO 10.38 K/mm3 (1.96-9.15); NEUTROPHILS PERCENT AUTO 89 % (41-73); Platelet Count 290 K/mm3 (150-400); RDW Standard Deviation 47.8 fL (35.1-46.3); Red Blood Cell Count 3.71 M/mm3 (3.80-5.20); White Blood Cell Count 11.69 K/mm3 (4.00-11.30)
[2022-02-13 05:50] LABS: Albumin, Blood 1.9 g/dL (3.4-5.0); Anion Gap 10 mmol/L (6-16); Blood Urea Nitrogen 15 mg/dL (8-24); Bun/Creatinine Ratio 14.4 (12.0-20.0); CO2, Blood 25 mmol/L (21-32); Calcium, Blood 8.8 mg/dL (8.5-10.1); Chloride, Blood 103 mmol/L (98-108); Creatinine, Blood 1.04 mg/dL (0.40-1.00); Glomerular Filtration Rate 68 (60-); Glucose, Blood 194 mg/dL (70-99); Phosphorus, Blood 2.1 mg/dL (2.5-4.9); Potassium, Blood 3.6 mmol/L (3.5-5.5); Sodium, Blood 138 mmol/L (136-145)
--- NOTE | 2022-02-13 06:20 | NUR ---
END OF SHIFT REPORT NS 125 ML/HR NEURO: A&OX4. PLEASANT AND MAKES NEEDS KNOWN. NO COMPLAINTS OF NUMBNESS/TINGLING, HEADACHE OR VISION CHANGES. FULL SENSATION IN ALL FOUR EXTREMITIES. RESPIRATORY: INTERMITTENT BIPAP OVERNIGHT. CURRENTLY HFNC 30L 55%. RHONCHI BREATH SOUNDS APPRECIATED. DYSPNEIC AT REST. TACHYPNEIC. MOIST, UNPRODUCTIVE COUGH. CARDIAC: SINUS TACH TO NSR OVERNIGHT. SBP RANGING FROM 140-170. NO COMPLAINTS OF CHEST PAIN OVERNIGHT. ONE HOUR OF SINUS ARRHYTHMIA, VARYING TO R TO R LENGTHS. SEE SAVED STRIP. GI: TWO BOWEL MOVEMENTS OVERNIGHT. BROWN/GREEN GELATINOUS. HYPERACTIVE BOWEL SOUNDS. NO PAIN WITH PALPATION. : ZHU CATH IN PLACE. ORANGE/PINK HAZY URINE WITH SEDIMENT. MUSKULOSKELETAL: GENERALIZED WEAKNESS. 1 PERSON ASSIST TO CHAIR AND BEDSIDE COMMODE. INTEGUMENTARY: INTERTRIGO NOTED UNDER BREASTS, PANNUS AND IN INGUINAL AREAS.
--- NOTE | 2022-02-13 07:03 | NUR ---
TOOK OVER CARE OF PT AT 0700. PT ON HFNC 55% 30L
--- NOTE | 2022-02-13 18:41 | NUR ---
SUMMARY NEURO: WNL CARDIAC: BP 130'S- 150'S. METOPROLOL INCREASED TO HOME DOSE. HR 90'S-100'S. TRACE-+EDEMA BLE. NO JVD. KPHOS REPLACED VIA IV. LUNGS: INTERMITENT COARSE LUNG SOUNDS BILAT UPPER LOBES, CLEARS WITH COUGH, OTHER BETANCOURT DIMINISHED. DECREASED WOB COMPARED TO MONDAY. PT REMAINED ON HFNC 55% 30L THROUGHOUT SHIFT, ALTERNATING BETWEEN BEING IN THE CHAIR OR LYING PRONE IN THE BED. PT STILL UNABLE TO PULL 500ML ON THE INCENTIVE SPIROMETER, PT RE-EDUCATED AND PERFORMED TEACH BACK. PT LIMITED BY FATIGUE AND DECREASED ENDURANCE BUT ACTIVE IN CARE. GI: ACTIVE BOWEL SOUNDS. TWO, SMALL, BLACK/BROWN, JELLY CONSISTENCY BM'S TODAY. PT CHANEGED TO AN ADA DIET. : ZHU IN PLACE, DRAINING TO GRAVITY, BELOW BLADDER. LARGE AMOUNTS OF SEDIMENT NOTED. HAZY PINK/ORANGE OUTPUT. SKIN; NEW SKIN BREAKDOWN NOTED IN FOLDS OF GROIN, MOST LIKELY DUE TO MOISTURE FROM PT SWEATING. THIS RN UNABLE TO LOCATE INNER DRY IN THIS FACILITY. SKIN WASHED, DRIED, SUREPREP APPLIED, FOLLOWED BY POWDER. OLD, SMALL, SCATTERED SCABS NOTED ON THE TOP OF PT'S RIGHT FOOT, LEFT MEDICAL RECEPTIONIST.
--- NOTE | 2022-02-13 19:00 | NUR ---
ASSUMED CARE OF PATIENT AT THIS TIME. REPORT RECIEVED FROM PREVIOUS RN. ALLERGIES, LINES, ASSESSMENT, AND PLAN OF CARE REVIEWED. PATIENT SITTING UP IN CHAIR, NO OBVIOUS DISTRESS.
[2022-02-14 04:32] LABS: BASOPHILS ABSOLUTE AUTO 0.05 K/mm3 (0.00-0.23); BASOPHILS PERCENT AUTO 0 % (0-2); EOSINOPHILS ABSOLUTE AUTO 0.06 K/mm3 (0.00-0.68); EOSINOPHILS PERCENT AUTO 1 % (0-6); Hematocrit 33.9 % (33.0-51.0); IMMATURE GRAN ABSOLUTE AUTO 0.64 K/mm3 (0.00-0.10); IMMATURE GRAN PERCENT AUTO 5 % (0-1); LYMPHOCYTES ABSOLUTE AUTO 0.62 K/mm3 (0.84-5.20); LYMPHOCYTES PERCENT AUTO 5 % (21-46); MONOCYTES ABSOLUTE AUTO 0.22 K/mm3 (0.16-1.47); MONOCYTES PERCENT AUTO 2 % (4-13); Mean Corpuscular HGB 27.8 pg (26.0-34.0); Mean Corpuscular HGB Conc 32.4 g/dL (31.5-36.5); Mean Corpuscular Volume 86 fL (80-100); Mean Platelet Volume 10.2 fL (9.1-12.4); NEUTROPHILS ABSOLUTE AUTO 10.46 K/mm3 (1.96-9.15); NEUTROPHILS PERCENT AUTO 87 % (41-73); Platelet Count 391 K/mm3 (150-400); RDW Coefficient Variation 14.8 % (11.7-14.2); RDW Standard Deviation 47.1 fL (35.1-46.3); Red Blood Cell Count 3.95 M/mm3 (3.80-5.20); White Blood Cell Count 12.05 K/mm3 (4.00-11.30)
[2022-02-14 04:52] LABS: Albumin, Blood 1.7 g/dL (3.4-5.0); Albumin/Globulin Ratio 0.3 (0.8-1.8); Bilirubin, Total 0.3 mg/dL (0.1-1.0); Bun/Creatinine Ratio 17.6 (12.0-20.0); Calcium, Blood 8.8 mg/dL (8.5-10.1); Creatinine, Blood 0.91 mg/dL (0.40-1.00); Magnesium, Blood 1.8 mg/dL (1.6-2.4); Potassium, Blood 3.9 mmol/L (3.5-5.5); Total Protein, Blood 6.7 g/dL (6.4-8.2)
--- NOTE | 2022-02-14 06:36 | NUR ---
SHIFT SUMMARY NEURO: PATIENT ALERT AND ORIENTED. SLEPT MOST OF SHIFT. DIFFICULTY GETTING COMFORTABLE. CARDIAC: BP ELEVATED. MD NOTIFIED OF SBP> 170. ORDERS RECIEVED FOR PRN HYDRALAZINE. MED GIVEN PER EMAR. ST/NSR. LOW GRADE FEVER OVERNIGHT. TMAX 100.7. NO COMPLAINTS OF CHEST PAIN RESP: PATIENT ON AIRVO 30L 60% OVERNIGHT. DID NOT REQUIRE BIPAP. DYSPNIC ON EXERTION. DIFFICULTY WITH USING INCENTIVE SPIROMETER. UNABLE TO REACH 500 NICHOLE. PATIENT SELF-PRONED AND REPOSITIONED INDEPENDENTLY. DRY COUGH WITH NO PRODUCTIVE SPUTUM. GI: ONE BOWEL MOVEMENT OVERNIGHT. SOFT AND LUMPY; BROWN. : ZHU IN PLACE, DRAINING YELLOW SEDIMENT. 2800 UOP OVERNIGHT. SKIN: SCABS ON FEET, MOIST REAR END, POWDER APPLIED. OTHER: PATIENT REQUESTING PRN TESSALON PEARLS AND MELATONIN OVERNIGHT. CLAIMS EFFECTIVE. TRANSFERRED TO CHAIR THIS AM.
--- NOTE | 2022-02-14 18:48 | NUR ---
END OF SHIFT SUMMARY NEURO: ALERT AND ORIENTED, IN [employer] CARDIAC: SINUS RHYTHM AT REST. SINUS TACHYCARDIA WITH ACTIVITY. SBP 150'S RESP: AIRVO 40-45% FIO2. LUNG SOUNDS COARSE AT TIMES, CLEARS WITH COUGH GI: OOB IN CHAIR FOR MEALS, AT 30-50% OF ALL MEALS. BMX3, BROWN, LOOSE. : ZHU, UO CLEAR YELLOW, 1000ML OUT SKIN: PURPLISH DISCOLORATION AT TOP OF COCCYX, PT'S BASELINE, NOT PRESSURE RELATED. IV: POWERGLIDE AND PIV IN PLACE. BOTH FLUSH WELL. SL. NO FAMILY IN TO VISIT TODAY. STATUS CHANGED TO PCU BY DR. SCHWAB.
[2022-02-15 05:07] LABS: BASOPHILS ABSOLUTE AUTO 0.08 K/mm3 (0.00-0.23); BASOPHILS PERCENT AUTO 1 % (0-2); EOSINOPHILS ABSOLUTE AUTO 0.14 K/mm3 (0.00-0.68); EOSINOPHILS PERCENT AUTO 1 % (0-6); Hematocrit 33.2 % (33.0-51.0); Hemoglobin 11.2 g/dL (11.5-16.0); IMMATURE GRAN ABSOLUTE AUTO 1.06 K/mm3 (0.00-0.10); IMMATURE GRAN PERCENT AUTO 9 % (0-1); LYMPHOCYTES PERCENT AUTO 8 % (21-46); MONOCYTES ABSOLUTE AUTO 0.34 K/mm3 (0.16-1.47); MONOCYTES PERCENT AUTO 3 % (4-13); Mean Corpuscular HGB 28.8 pg (26.0-34.0); Mean Corpuscular HGB Conc 33.7 g/dL (31.5-36.5); Mean Corpuscular Volume 85 fL (80-100); Mean Platelet Volume 10.2 fL (9.1-12.4); NEUTROPHILS ABSOLUTE AUTO 9.48 K/mm3 (1.96-9.15); NEUTROPHILS PERCENT AUTO 79 % (41-73); NRBC ABSOLUTE 0.06 K/mm3 (0.00-0.02); NRBC Auto 0.5 /100 WBC (0.0-0.2); Platelet Count 476 K/mm3 (150-400); RDW Coefficient Variation 14.9 % (11.7-14.2); RDW Standard Deviation 46.5 fL (35.1-46.3); Red Blood Cell Count 3.89 M/mm3 (3.80-5.20)
[2022-02-15 05:36] LABS: BAND PERCENT MAN 3 % (0-8); BASOPHILS PERCENT MAN 0 % (0-2); EOSINOPHILS PERCENT MAN 0 % (0-6); LYMPHOCYTES ABSOLUTE MAN 0.72 K/mm3 (0.84-5.20); LYMPHOCYTES PERCENT MAN 6 % (21-46); METAMYELOCYTE ABSOLUTE MAN 0.12 K/mm3 (0.00-0.00); METAMYELOCYTE PERCENT MAN 1 % (0-0); MONOCYTES ABSOLUTE MAN 0.12 K/mm3 (0.16-1.47); MONOCYTES PERCENT MAN 1 % (4-13); MYELOCYTE ABSOLUTE MAN 0.12 K/mm3 (0.00-0.00); MYELOCYTE PERCENT MAN 1 % (0-0); NEUTROPHILS ABSOLUTE MAN 10.92 K/mm3 (1.96-9.15); SEG NEUTROPHILS PERCENT MAN 88 % (41-73); TOTAL CELLS COUNTED 100
[2022-02-15 05:46] LABS: Bun/Creatinine Ratio 20.8 (12.0-20.0); Calcium, Blood 8.9 mg/dL (8.5-10.1); Creatinine, Blood 0.91 mg/dL (0.40-1.00); Potassium, Blood 3.6 mmol/L (3.5-5.5)
--- NOTE | 2022-02-15 06:32 | NUR ---
END OF SHIFT SUMMARY NEURO: A&OX4. PT DENIES NUMBNESS/TINGLING, VISION CHANGES OR HEADACHE. FULL SENSATION IN ALL FOUR EXTREMITIES. RESPIRATORY: HFNC 30L 45% AND BIPAP 10/5 45% OVERNIGHT. BREATH SOUNDS CLEAR IN THE UPPERS AND COARSE IN THE LOWERS. DYSPNEA AT REST. CARDIAC: NSR-SINUS TACH OVERNIGHT. SBPs averaged in the 140s. A FEW EPISODES OF BRADYCARDIA IN THE 50s ASSOCIATED WITH DESATTING IN THE MID 80s OVERNIGHT WHILE SLEEPING. NO COMPLAINTS OF CHEST PAIN. GI: 1 SMALL SOFT BROWN/GREEN STOOL OVERNIGHT. NO TENDERNESS WITH ABDOMINAL PALPATION. NORMOACTIVE TO HYPERACTIVE BOWEL SOUNDS. : ZHU IN PLACE. PUTTING OUT ADEQUATE CLEAR YELLOW URINE WITH INTERMITTENT SEDIMENT. MUSCULOSKELETAL: GENERALIZED WEAKNESS. 1 ASSIST TO CHAIR AND COMMODE. FULL MOVEMENT IN ALL FOUR EXTREMITIES. INTEGUMENTARY: INGUINAL INTERTRIGO
--- NOTE | 2022-02-15 07:15 | NUR ---
Assumed care of pt at 0700 Bedside report received from ALONSO Patterson. Pt resting in bed, on Airvo, O2Sats >92%. Denies SOB. Requesting to get OOB to the commode. Powerglide in place, not withdrawing blood but flushes well. Denies pain/discomfort. Dr. Gauthier in to see pt during shift report. placed orders for increased insulin dosage due to continued hyperglycemia. Pt is still PCU status. RN to continue to monitor.
--- NOTE | 2022-02-15 18:22 | NUR ---
END OF SHIFT SUMMARY PT RESPIRATORY STATUS CONTINUES TO IMPROVE. TRANSITIONED FROM AIRVO TO HF NC. ABLE TO WEAN DOWN TO 8L, O2 SAT REMAINS >92%. DYSPNEA ON EXERTION, RESOLVES QUICKLY. OOB FOR SEVERAL HOURS, DANGLED AT EDGE OF BED OR SAT IN THE CHAIR. WORKED WITH PT, TOLERATED WELL. BM X3, BROWN, SOFT, MEDIUM. APPETITE GOOD. MOTHER AND DAUGHTER AT BEDSIDE TO VISIT. STATUS REMAINS PCU, AWAITING BED AVAILABILITY. ASSISTED WITH BATHING AND WASHING HAIR. PT STATES SHE FEELS OVERALL BETTER TODAY. RN TO CONTINUE TO MONITOR.
--- NOTE | 2022-02-15 22:21 | NUR ---
ASSUME CARE A&OX4. MED TELE. PT DENIES DYSPNEA, NUMBNESS/TINGLING, HEADACHE OR VISION CHANGES. NSR AND NORMOTENSIVE. ON ROOM AIR. GENERALIZED WEAKNESS. STERNAL PAIN AT 4, PT SAID THIS LEVEL IS ACCEPTABLE TO HER.
[2022-02-16 03:52] LABS: Hematocrit 35.7 % (33.0-51.0); Hemoglobin 11.4 g/dL (11.5-16.0); Mean Corpuscular HGB 27.9 pg (26.0-34.0); Mean Corpuscular HGB Conc 31.9 g/dL (31.5-36.5); Mean Corpuscular Volume 88 fL (80-100); Mean Platelet Volume 9.8 fL (9.1-12.4); NRBC ABSOLUTE 0.08 K/mm3 (0.00-0.02); NRBC Auto 0.7 /100 WBC (0.0-0.2); Platelet Count 554 K/mm3 (150-400); RDW Coefficient Variation 14.7 % (11.7-14.2); RDW Standard Deviation 47.1 fL (35.1-46.3); Red Blood Cell Count 4.08 M/mm3 (3.80-5.20); White Blood Cell Count 11.23 K/mm3 (4.00-11.30)
[2022-02-16 04:08] LABS: Calcium, Blood 8.5 mg/dL (8.5-10.1); Creatinine, Blood 0.86 mg/dL (0.40-1.00); Potassium, Blood 3.8 mmol/L (3.5-5.5)
--- NOTE | 2022-02-16 05:08 | NUR ---
END OF SHIFT SUMMARY NEURO: A&OX4. PT DENIES NUMBNESS/TINGLING AND VISION CHANGES. CARDIAC: NSR-ST. SBP STEADY IN 140s. PT DENIES CHEST PAIN. RESPIRATORY: 8L NC OVERNIGHT. DYSPNEA WITH EXERTION. IMPROVED WORK OF BREATHING AT REST. RHONCHI BREATH SOUNDS APPRECIATED IN BASES, CLEAR-COARSE IN THE UPPERS. GI: WNL. NO PAIN WITH PALPATION. NORMOACTIVE BOWEL SOUNDS. MORBID OBESITY. : ZHU IN PLACE. PUTTING OUT ADEQUATE CLEAR YELLOW URINE WITH INTERMITTENT SEDIMENT. MUSCULOSKELETAL: GENERALIZED WEAKNESS BUT TRANSFERRING ON HER OWN FROM BED TO CHAIR/COMMODE. VERBAL CUES ONLY TO AVOID WIRES AND TRIPPING. INTEGUMENTARY: FLUSHED BUT INTACT
[2022-02-16 05:12] LABS: BAND PERCENT MAN 4 % (0-8); BASOPHILS PERCENT MAN 0 % (0-2); EOSINOPHILS ABSOLUTE MAN 0.33 K/mm3 (0.00-0.68); EOSINOPHILS PERCENT MAN 3 % (0-6); LYMPHOCYTES ABSOLUTE MAN 0.89 K/mm3 (0.84-5.20); LYMPHOCYTES PERCENT MAN 8 % (21-46); METAMYELOCYTE ABSOLUTE MAN 0.11 K/mm3 (0.00-0.00); METAMYELOCYTE PERCENT MAN 1 % (0-0); MONOCYTES ABSOLUTE MAN 0.11 K/mm3 (0.16-1.47); MONOCYTES PERCENT MAN 1 % (4-13); MYELOCYTE ABSOLUTE MAN 0.22 K/mm3 (0.00-0.00); MYELOCYTE PERCENT MAN 2 % (0-0); NEUTROPHILS ABSOLUTE MAN 9.54 K/mm3 (1.96-9.15); SEG NEUTROPHILS PERCENT MAN 81 % (41-73); TOTAL CELLS COUNTED 100
--- NOTE | 2022-02-16 07:25 | NUR ---
0700 assumed care Patient is up in chair this am. She is resting comfortably. IV saline lock. Goal to get patient's black dc'd today and have her be more mobile and do more respitory toilet training with flutter valve. Will monitor glucose and cover with high sliding scale insulin and glargine as directed.
--- NOTE | 2022-02-16 14:12 | NUR ---
NOON ASSESSMENT UPDATE PATIENT HAS BEEN UP OUT OF BED IN CHAIR THIS MORNING. SHE HAS GOTTEN HER ZHU OUT AND SHE IS AMBULATING TO THE BATHROOM INDEPENDENLY NOW. HER SKIN FOLDS ARE DRY AND INTACT AND POWDER WAS APPLIED TO THEM S/P HER SPONGE BATH THAT SHE DID MOSTLY HERSELF. SHE DOES STILL GET SOB WITH ADL ACTIVITY HOWEVER. SHE GETS SLIGHTLY TACHYCARDIC WITH ACTIVITY TOO. SHE IS OXYGENATING WELL ON 8L HHF/NC. WILL TRY TO TITRATE DOWN TODAY. VS HAVE NON REMARKABLE TODAY. SHE IS GETTING HIGH SLIDING SCALE INSULIN 9 TO 12 UNITS OF INSULIN AT MEALS DUE TO HER GLUCOSE FINGER STICKS STILL SHOWING 300'S. CONSULTED DIETARY TO HAVE THEM COME DISCUSS WITH HER BETTER HOME DIET REGIMINE SINCE SHE DOESM'T FEEL INSULIN HELPS GETTING HER GLUCOSE DOWN AT ALL. WILL CONTINUE CARE DIRECTED. NO ACUTE PAIN TO ADDRESS AND NO VISITORS IN SO FAR.
--- NOTE | 2022-02-16 17:45 | NUR ---
END OF SHIFT. PATIENT CHANGED TO MEDICAL TELE THIS AFTERNOON AND IS GETTING A BED TO 327. REPORT WAS GIVEN TO FLOOR RN TO RESUME CARE. PATIENT COVERED WITH INSULIN THIS EVENING AND IS EATTING DINNER. ONCE DONE SHE WILL MOVE TO NEW ROOM. NO ACUTE CHANGES TO NOTE EXCEPT SHE IS DOWN TO 6L HHF/NC OXYGENATION AT 96% WITH NO ACTIVITY AND DOWN TO 92% WITH ACTIVITY IN ROOM.
--- NOTE | 2022-02-16 19:00 | NUR ---
SHIFT SUMMARY PTN TRANSFER FROM ICU AT ABOUT 1830. PTN ADMITTED FOR SOB, PNEUMONIA. PTN WITH DM, AC/HS SLIDING SCALE, GLARGINE FOR LONG-ACTING. PTN INDEPENDENT IN ROOM, ON 6L NC, REPORTED TO RUN IN THE LOW 90'S. WILL MOST LIKELY NEED HOME O2 EVAL ON D/C. PASS DOWN FROM MELBA REPORTED LUNGS TO BE CLEAR, DIMINISHED IN BASES. CONTINUE TO MONITOR.
[2022-02-17 05:52] LABS: BASOPHILS ABSOLUTE AUTO 0.07 K/mm3 (0.00-0.23); BASOPHILS PERCENT AUTO 1 % (0-2); EOSINOPHILS ABSOLUTE AUTO 0.15 K/mm3 (0.00-0.68); EOSINOPHILS PERCENT AUTO 1 % (0-6); Hematocrit 38.3 % (33.0-51.0); Hemoglobin 11.8 g/dL (11.5-16.0); IMMATURE GRAN ABSOLUTE AUTO 0.72 K/mm3 (0.00-0.10); IMMATURE GRAN PERCENT AUTO 6 % (0-1); LYMPHOCYTES ABSOLUTE AUTO 1.23 K/mm3 (0.84-5.20); LYMPHOCYTES PERCENT AUTO 10 % (21-46); MONOCYTES ABSOLUTE AUTO 0.44 K/mm3 (0.16-1.47); MONOCYTES PERCENT AUTO 4 % (4-13); Mean Corpuscular HGB 27.3 pg (26.0-34.0); Mean Corpuscular HGB Conc 30.8 g/dL (31.5-36.5); Mean Corpuscular Volume 89 fL (80-100); Mean Platelet Volume 9.7 fL (9.1-12.4); NEUTROPHILS ABSOLUTE AUTO 9.85 K/mm3 (1.96-9.15); NEUTROPHILS PERCENT AUTO 79 % (41-73); NRBC ABSOLUTE 0.04 K/mm3 (0.00-0.02); NRBC Auto 0.3 /100 WBC (0.0-0.2); Platelet Count 663 K/mm3 (150-400); RDW Coefficient Variation 14.5 % (11.7-14.2); RDW Standard Deviation 46.8 fL (35.1-46.3); Red Blood Cell Count 4.33 M/mm3 (3.80-5.20); White Blood Cell Count 12.46 K/mm3 (4.00-11.30)
[2022-02-17 06:18] LABS: Bun/Creatinine Ratio 24.7 (12.0-20.0); Calcium, Blood 9.3 mg/dL (8.5-10.1); Creatinine, Blood 0.89 mg/dL (0.40-1.00)
--- NOTE | 2022-02-17 09:08 | NUR ---
MANUFACTURING PLANT CONTROLLER SUMMARY: A&Ox4. PLEASANT AND COOPERATIVE WITH CARE. VSS. STOOLING AND VOIDING INDEPENDENTLY. AMBULATING IMDEPEDENTLY WITHIN ROOM. O2 VIA NC @ 5L/min AND CONTINUOUS BIOX. COUGH WITH SCANT PHLEGM. NO FEVERS NOTED. WILL REPORT TO ONCOMING RN.
--- NOTE | 2022-02-17 18:08 | NUR ---
SHIFT SUMMARY PTN ON 6L O2 VIA NC, SEEN BY DR SCHWAB, O2 DECREASED TO 2L AND PTN MAINTAINED 97%. AT 1L SHE DID DROP TO 93%, AND WITHOUT O2 DOWN TO 88. HOME O2 EVAL WAS ORDERED AND COMPLETED. O2 AT 2L WILL BE REQUIRED, AND ARRANGEMENTS WILL BE MADE IN AM FOR THIS, WITH POSSIBLE D/C AFTER. PTN SEEN BY THEE IN [facility]IG[facility]. CONTINUE TO MONITOR.
--- NOTE | 2022-02-18 06:01 | NUR ---
SUMMARY: PT A/OX4, IS INDEPENDENT IN ROOM AND CALLS APPROPRIATELY TO SPECIFY NEEDS. SHE REMAINS ON 2L NC W/SPO2 WNL AND NO S/S RESP DISTRESS OBSERVED T/O NOCTE. ORAL ABX BEING RECIEVED FOR PNM AND PT REQUESTED TESSALON FOR TOLERABLE RELIEF OF NAGGING COUGH. MELATONIN ALSO PROVIDED FOR SLEEP. NO ACUTE CHANGES, VSS/AFEBRILE. HOME O2 ARRANGEMENTS PLANNED FOR TODAY W/PROBABLE D/C AFTER. WCTM AND REPORT TO DAY RN.
[2022-02-18] MEDS ORDERED: ALBU90OI INH (10:20)
[2022-02-18] MEDS ORDERED: GUAI600T33 PO (10:22)
[2022-02-18] MEDS ORDERED: BENZ100A PO (10:22)
[2022-02-18] MEDS ORDERED: LANTUS SOL100 UNIT/1 SC (10:23)
[2022-02-18] MEDS ORDERED: HUMALOG JU100 UNIT/2 SC (10:24)
[2022-02-18] MEDS ORDERED: VISBIOME 112.51 EACH PO (10:25)
[2022-02-18] MEDS ORDERED: LEVAQUIN750 MG PO (10:25)
--- NOTE | 2022-02-18 14:10 | NUR ---
DISCHARGE NOTE: PATIENT WAS EDUCATED ON DISCHARGE INSTRUCTIONS. SHE VERBALIZED UNDERSTANDING OF DISCHARGE INSTRUCTIONS AND HAD NO FURTHER QUESTIONS AT THIS TIME. PERSCRIPTIONS WERE FAXED TO HER PREFERRED PHARMACY WHICH IS [facility]. PATIENT RECIEVED HER HOME OXYGEN TANK AND VERBALIZED UNDERSTANDING OF HOW TO USE IT. SHE IS GOING HOME ON 2L NC AND HAS DENIED SOB OR CHEST PAIN. SHE IS TOLERATING PO INTAKE AND IS VOIDING INDEP. IV WAS TAKEN OUT AND WNL. PATIENT IS DRESSED AND HAS ITEMS IN THE ROOM GATHERED. PATIENT IS BEING WHEELCHAIRED DOWN TO HER FAMILY MEMBERS CAR TO BE TAKEN HOME.
== END 2022-02-18 14:08 | disposition home or self-care (01) | DRG 871 ==
LOC: ER 08:55 → ICUW 13:34 → MEDS 13:34 → ICUW 15:50 → MEDS 02-16 18:15
PROVIDERS: Emergency Medicine; Family Medicine; Internal Medicine; Nurse Practitioner Acute Care; ADMIT Internal Medicine
PROC: 3E03329 Introduction of Other Anti-infective into Peripheral Vein, Percutaneous Approach (ICD-10-PCS; principal; 2022-02-10)
PROC: 5A0935A Assistance with Respiratory Ventilation, Less than 24 Consecutive Hours, High Flow/Velocity Cannula (ICD-10-PCS; 2022-02-12)
PROC: 5A09357 Assistance with Respiratory Ventilation, Less than 24 Consecutive Hours, Continuous Positive Airway Pressure (ICD-10-PCS; 2022-02-15)
DX: A41.51 Sepsis due to Escherichia coli [E. coli] (principal); A48.1 Legionnaires' disease; R65.21 Severe sepsis with septic shock; J96.01 Acute respiratory failure with hypoxia; N17.9 Acute kidney failure, unspecified; E87.1 Hypo-osmolality and hyponatremia; N39.0 Urinary tract infection, site not specified; Z68.41 Body mass index [BMI] 40.0-44.9, adult; R77.8 Other specified abnormalities of plasma proteins; E87.6 Hypokalemia; E11.9 Type 2 diabetes mellitus without complications; E66.01 Morbid (severe) obesity due to excess calories; I10 Essential (primary) hypertension; E78.00 Pure hypercholesterolemia, unspecified; Z20.822 Contact with and (suspected) exposure to COVID-19; D50.9 Iron deficiency anemia, unspecified; Z86.16 Personal history of COVID-19; Z90.49 Acquired absence of other specified parts of digestive tract; Z98.890 Other specified postprocedural states
CPT/HCPCS: 0241U; 36415; 36600; 51703; 71045; 71260; 80048; 80053; 80069; 80202; 81001; 82010; 82803; 82947; 83036; 83605; 83735; 84100; 84484; 85025; 85610; 85730; 87040; 87077; 87086; 87186; 87449; 92526; 92610; 93005; 93010; 93306; 94640; 94660; 94664; 94760; 94761; 94762; 96365-59; 96367-59; 96375-59; 97110; 97116; 97162; 97530; 99285-25; A9270; C1751; J0360; J0456; J0696; J1644; J1815; J1956; J2405; J2543; J2765; J3370; J3475; J3480; J7030; J7050; J7060; P9047; Q9967; U0004

== ENCOUNTER 2022-06-21 17:39 | Inpatient (IN) | payer OTHER ==
[~2022-06-21] VITALS: Wt 112.0 kg
[~2022-06-21 17:39] MED LIST changes: +ALBU90OI INH; +BENZ100A PO; +GUAI600T33 PO; +HUMALOG JU100 UNIT/2 SC; +LANTUS SOL100 UNIT/1 SC; +LEVAQUIN750 MG PO; +VISBIOME 112.51 EACH PO
--- NOTE | 2022-06-21 18:20 | NUR ---
DIRECT ADMIT @ THIS TIME CHERELLE NOTIFIED, PT TO CT NOW
[2022-06-21] MEDS ORDERED: GLIP2.5ER PO (18:28)
[2022-06-21] MEDS ORDERED: AMLO5 PO (18:29)
[2022-06-21 21:30] LABS: Source, Urine Clean Catch
[2022-06-21 21:40] LABS: Bilirubin, Urine Neg (Neg); Blood, Urine 4+ (Neg); Glucose Qualitative, Urine 4+ (Neg); Ketones, Urine 1+ (Neg); Leukocyte Esterase, Urine 3+ (Neg); Nitrite, Urine Neg (Neg); Protein, Urine 3+ (Neg); Urobilinogen, Urine NORM (Normal)
[2022-06-21 21:53] LABS: Appearance, Urine Cloudy (Clear); Color, Urine Pale Yellow (P-Yellow)
[2022-06-21 21:54] LABS: Bacteria Many /hpf; Squamous Epithelial Cells Few /hpf (Few); White Blood Cells, Urine 50-100 /hpf (0-5)
[2022-06-22 05:05] LABS: BASOPHILS ABSOLUTE AUTO 0.05 K/mm3 (0.00-0.23); BASOPHILS PERCENT AUTO 0 % (0-2); EOSINOPHILS ABSOLUTE AUTO 0.01 K/mm3 (0.00-0.68); EOSINOPHILS PERCENT AUTO 0 % (0-6); Hematocrit 40.1 % (33.0-51.0); Hemoglobin 13.5 g/dL (11.5-16.0); IMMATURE GRAN ABSOLUTE AUTO 0.07 K/mm3 (0.00-0.10); IMMATURE GRAN PERCENT AUTO 0 % (0-1); LYMPHOCYTES ABSOLUTE AUTO 0.64 K/mm3 (0.84-5.20); LYMPHOCYTES PERCENT AUTO 4 % (21-46); MONOCYTES ABSOLUTE AUTO 0.78 K/mm3 (0.16-1.47); MONOCYTES PERCENT AUTO 4 % (4-13); Mean Corpuscular HGB 28.2 pg (26.0-34.0); Mean Corpuscular HGB Conc 33.7 g/dL (31.5-36.5); Mean Corpuscular Volume 84 fL (80-100); Mean Platelet Volume 8.9 fL (9.1-12.4); NEUTROPHILS ABSOLUTE AUTO 16.67 K/mm3 (1.96-9.15); NEUTROPHILS PERCENT AUTO 91 % (41-73); Platelet Count 307 K/mm3 (150-400); RDW Coefficient Variation 13.9 % (11.7-14.2); RDW Standard Deviation 42.6 fL (35.1-46.3); Red Blood Cell Count 4.79 M/mm3 (3.80-5.20); White Blood Cell Count 18.22 K/mm3 (4.00-11.30)
[2022-06-22 05:30] LABS: Albumin, Blood 2.8 g/dL (3.4-5.0); Albumin/Globulin Ratio 0.7 (0.8-1.8); Bilirubin, Total 0.3 mg/dL (0.1-1.0); Bun/Creatinine Ratio 20.2 (12.0-20.0); Calcium, Blood 8.7 mg/dL (8.5-10.1); Creatinine, Blood 1.14 mg/dL (0.40-1.00); Globulin, Blood 4.1 g/dL (2.2-4.0); Magnesium, Blood 1.4 mg/dL (1.6-2.4); Potassium, Blood 4.4 mmol/L (3.5-5.5); Total Protein, Blood 6.9 g/dL (6.4-8.2)
--- NOTE | 2022-06-22 11:52 | NUR ---
Upon receiving a referral for spiritual care, I visited the patient. She tells me about her kidney stones and the medical plans to care for the patient. She explains about the family support that she has and how they are her inspiration and strength in challenging situations. I provide theraeputic listening and a calming presence. Patient responded well and showed signs of an elevated mood.
--- NOTE | 2022-06-22 15:45 | NUR ---
PATIENT DECIDED TO LEAVE AMA AND TO SEEK CARE AT [facility] FOR REMOVAL OF OBSTRUCTING KIDNEY STONE. EVEN THOUGH IR CONSULT PLACED, PT FELT THAT HAVING PERCUTANEOUS NEPHROSTOMY WAS NOT THE CORRECT OPTION FOR HER AND WANTED TO SEE UROLOGIST. VERBALIZED UNDERSTANDING OF RISKS AND BENEFITS OF LEAVING AMA, SIGNED AMA FORM AT 1540. LEFT UNIT VIA W/C ACCOMPANIED BY HER DAUGHTER. LEFT VM FOR DR. DOS SANTOS.
== END 2022-06-22 15:43 | disposition left against medical advice (07) | DRG 872 ==
LOC: MEDS 17:39
PROVIDERS: ADMIT Internal Medicine
DX: A41.51 Sepsis due to Escherichia coli [E. coli] (principal); N13.6 Pyonephrosis; E78.5 Hyperlipidemia, unspecified; E11.9 Type 2 diabetes mellitus without complications; I10 Essential (primary) hypertension; D50.9 Iron deficiency anemia, unspecified; E66.9 Obesity, unspecified; Z90.49 Acquired absence of other specified parts of digestive tract; Z98.890 Other specified postprocedural states; Z79.51 Long term (current) use of inhaled steroids; Z79.899 Other long term (current) drug therapy; Z79.02 Long term (current) use of antithrombotics/antiplatelets; Z79.811 Long term (current) use of aromatase inhibitors; Z79.84 Long term (current) use of oral hypoglycemic drugs; Z53.29 Procedure and treatment not carried out because of patient's decision for other reasons
CPT/HCPCS: 36415; 74176; 80053; 81001; 82947; 83735; 85025; 87040; 87077; 87086; 87186; A9270; J0696; J1170; J1650; J2270; J2405; J3475; J7030

== ENCOUNTER → 2022-09-22 | Outpatient (CLI) | payer OTHER ==
[~2022-09-22] MED LIST changes: +GLIP2.5ER PO
== END | disposition home or self-care (01) ==
LOC: LAB SHORT 12:32 → LAB 12:32
DX: R35.0 Frequency of micturition (principal)
CPT/HCPCS: 87077; 87086; 87186

== ENCOUNTER 2023-01-31 14:10 | Observation (INO) | payer OTHER ==
[~2023-01-31] VITALS: Ht 167.6 cm; Wt 110.4 kg
[2023-01-31 15:00] LABS: BASOPHILS ABSOLUTE AUTO 0.04 K/mm3 (0.00-0.23); BASOPHILS PERCENT AUTO 0 % (0-2); EOSINOPHILS ABSOLUTE AUTO 0.14 K/mm3 (0.00-0.68); EOSINOPHILS PERCENT AUTO 2 % (0-6); Hematocrit 43.3 % (33.0-51.0); Hemoglobin 14.8 g/dL (11.5-16.0); IMMATURE GRAN ABSOLUTE AUTO 0.02 K/mm3 (0.00-0.10); IMMATURE GRAN PERCENT AUTO 0 % (0-1); LYMPHOCYTES ABSOLUTE AUTO 1.18 K/mm3 (0.84-5.20); LYMPHOCYTES PERCENT AUTO 13 % (21-46); MONOCYTES ABSOLUTE AUTO 0.48 K/mm3 (0.16-1.47); MONOCYTES PERCENT AUTO 5 % (4-13); Mean Corpuscular HGB 29.2 pg (26.0-34.0); Mean Corpuscular HGB Conc 34.2 g/dL (31.5-36.5); Mean Corpuscular Volume 86 fL (80-100); Mean Platelet Volume 9.6 fL (9.1-12.4); NEUTROPHILS ABSOLUTE AUTO 7.39 K/mm3 (1.96-9.15); NEUTROPHILS PERCENT AUTO 80 % (41-73); Platelet Count 268 K/mm3 (150-400); RDW Standard Deviation 43.5 fL (35.1-46.3); Red Blood Cell Count 5.06 M/mm3 (3.80-5.20); White Blood Cell Count 9.25 K/mm3 (4.00-11.30)
[2023-01-31 15:21] LABS: Magnesium, Blood 1.7 mg/dL (1.6-2.4)
[2023-01-31 15:22] LABS: Albumin, Blood 3.4 g/dL (3.4-5.0); Albumin/Globulin Ratio 0.8 (0.8-1.8); Bilirubin, Total 0.3 mg/dL (0.1-1.0); Bun/Creatinine Ratio 14.4 (12.0-20.0); Creatinine, Blood 1.39 mg/dL (0.40-1.00); Globulin, Blood 4.2 g/dL (2.2-4.0); Total Protein, Blood 7.6 g/dL (6.4-8.2)
[2023-01-31] MEDS ORDERED: CHLO25B PO (20:19)
[2023-01-31] MEDS ORDERED: PIOG15 PO (20:19)
[2023-01-31] MEDS ORDERED: STEGLATRO15 MG PO (20:19)
[2023-02-01] VITALS (12 sets, daily range): BP systolic 112–165; BP diastolic 56–93
[2023-02-01 05:39] LABS: BASOPHILS ABSOLUTE AUTO 0.03 K/mm3 (0.00-0.23); BASOPHILS PERCENT AUTO 0 % (0-2); EOSINOPHILS ABSOLUTE AUTO 0.16 K/mm3 (0.00-0.68); EOSINOPHILS PERCENT AUTO 2 % (0-6); Hematocrit 42.5 % (33.0-51.0); Hemoglobin 14.3 g/dL (11.5-16.0); IMMATURE GRAN ABSOLUTE AUTO 0.02 K/mm3 (0.00-0.10); IMMATURE GRAN PERCENT AUTO 0 % (0-1); LYMPHOCYTES ABSOLUTE AUTO 1.56 K/mm3 (0.84-5.20); LYMPHOCYTES PERCENT AUTO 20 % (21-46); MONOCYTES ABSOLUTE AUTO 0.46 K/mm3 (0.16-1.47); MONOCYTES PERCENT AUTO 6 % (4-13); Mean Corpuscular HGB 28.6 pg (26.0-34.0); Mean Corpuscular HGB Conc 33.6 g/dL (31.5-36.5); Mean Corpuscular Volume 85 fL (80-100); Mean Platelet Volume 9.5 fL (9.1-12.4); NEUTROPHILS ABSOLUTE AUTO 5.78 K/mm3 (1.96-9.15); NEUTROPHILS PERCENT AUTO 72 % (41-73); Platelet Count 235 K/mm3 (150-400); RDW Coefficient Variation 14.2 % (11.7-14.2); RDW Standard Deviation 43.8 fL (35.1-46.3); White Blood Cell Count 8.01 K/mm3 (4.00-11.30)
[2023-02-01 06:10] LABS: Albumin, Blood 3.1 g/dL (3.4-5.0); Albumin/Globulin Ratio 0.7 (0.8-1.8); Bilirubin, Total 0.4 mg/dL (0.1-1.0); Bun/Creatinine Ratio 14.9 (12.0-20.0); Calcium, Blood 9.4 mg/dL (8.5-10.1); Creatinine, Blood 1.34 mg/dL (0.40-1.00); Globulin, Blood 4.2 g/dL (2.2-4.0); Magnesium, Blood 2.2 mg/dL (1.6-2.4); Potassium, Blood 3.4 mmol/L (3.5-5.5); Total Protein, Blood 7.3 g/dL (6.4-8.2)
--- NOTE | 2023-02-01 06:28 | NUR ---
SHIFT SUMMARY REPORT FROM [facility] ED RN- PT BROUGHT UP VIA GURATKA- PT ABLE TO TRANSFER FROM GURNEY TO BED WITHOUT PROBLEMS- PT AMBULATED TO BATHROOM WITHOUT C/O - PT REPORTED THAT SHE IN THE PAST FEW WEEKS HAD NEAR SYNCOPE EPISODE WHEN BENDING OVER OR EXERTING HERSELF- PT ON TELE- MAGNESIUM FINISHED WHEN BROUGHT UP FROM ED- BED LOW POSITION, CALL LIGHT WITHIN REACH
--- NOTE | 2023-02-01 09:22 | NUR ---
MD CALL DR SCHWAB NOTIFIED VIA TELEPHONE THAT MACHINE TRACER HAS CALLED ME FOR SINUS TACH 120S UP TO 150. AROUND 129-130 CURRENTLY. SHE WAS UP TO THE BATHROOM WHEN IT WENT UP TO 150. NO NEW ORDERS, CONTINUE TO MONITOR.
--- NOTE | 2023-02-01 11:34 | NUR ---
MD CALL DR SCHWAB NOTIFIED OF BLOOD GLUCOSE 288. TELEPHONE ORDER FOR LOW S/S HUMALOG QUICK PEN Q6HRS. READ BACK DONE AND ORDER ENTERED INTO [employer].
--- NOTE | 2023-02-01 15:19 | NUR ---
SHIFT SUMMARY MS APARICIO IS ALERT, ORIENTATED X4. UP TO BATHROOM INDEPENDENTLY WITH STEADY GAIT. ON TELEMETRY, NOW [address] ST BUT IT WAS 120-150 THIS MORNING (STARTED WHEN SHE WAS UP TO THE BATHROOM). SHE HAD BEDSIDE ECHO DONE AND IS WAITING TO [facility]. SHE HAS BEEN NPO TODAY WITH IVF INFUSING. SHE HAS DENIED ANY PAIN OR SOB. RESTING IN BED, BED LOW, CALL LIGHT IN REACH.
--- NOTE | 2023-02-01 17:00 | NUR ---
RN NOTE PT TRANSFERED TO [facility] FOR PACEMAKER PLACEMENT. PLAN TO GO TO PCU 11 POST PROCEDURE. INSULIN TAKEN WITH PT CHART. BELONGINGS PACKED UP TO GO TO PCU 11.
--- NOTE | 2023-02-01 17:27 | NUR ---
RN NOTE REPORT TO GIANNA GUPTA IN PCU.
--- NOTE | 2023-02-01 20:44 | NUR ---
TRANSFER NOTE/ASSUMPTION OF CARE PT TO ROOM FROM [facility] AROUND 2019. PT A&O X4. ABLE TO MAKE NEEDS KNOWN. AMBULATES TO BATHROOM WELL. NOTED DYSPNEA WITH EXERTION WHICH SHE STATES IS BASELINE SINCE HAVE COVID 2 YEARS AGO. RIGHT CHEST WALL DRESSING C/D/I. PT ST ON MONITOR WITH HR 110'S. DENIES CHEST PAIN/PRESSURE. TENDERNESS AT PACEMAKER SITE WITH PALPATION; ICE PACK PLACED NEEDED. SLING IN PLACE. LR INFUSING PER EMAR. BP STABLE WITH SBP 130'S. ON RA WITH SPO2 >92%. DENIES NEEDS AT THIS TIME. BED IN LOWEST POSITION AND CALL LIGHT WITHIN REACH.
[2023-02-02] VITALS: BP 139/78
[2023-02-02 01:00] VITALS: BP 150/74
[2023-02-02 02:00] VITALS: BP 143/78
[2023-02-02 03:05] VITALS: BP 150/85
[2023-02-02 04:00] VITALS: BP 156/90
[2023-02-02 04:14] LABS: BASOPHILS ABSOLUTE AUTO 0.03 K/mm3 (0.00-0.23); BASOPHILS PERCENT AUTO 0 % (0-2); EOSINOPHILS ABSOLUTE AUTO 0.14 K/mm3 (0.00-0.68); EOSINOPHILS PERCENT AUTO 2 % (0-6); Hematocrit 40.9 % (33.0-51.0); Hemoglobin 13.6 g/dL (11.5-16.0); IMMATURE GRAN ABSOLUTE AUTO 0.03 K/mm3 (0.00-0.10); IMMATURE GRAN PERCENT AUTO 0 % (0-1); LYMPHOCYTES PERCENT AUTO 18 % (21-46); MONOCYTES ABSOLUTE AUTO 0.55 K/mm3 (0.16-1.47); MONOCYTES PERCENT AUTO 7 % (4-13); Mean Corpuscular HGB 28.8 pg (26.0-34.0); Mean Corpuscular HGB Conc 33.3 g/dL (31.5-36.5); Mean Corpuscular Volume 87 fL (80-100); Mean Platelet Volume 9.7 fL (9.1-12.4); NEUTROPHILS ABSOLUTE AUTO 6.11 K/mm3 (1.96-9.15); NEUTROPHILS PERCENT AUTO 73 % (41-73); Platelet Count 228 K/mm3 (150-400); RDW Coefficient Variation 14.2 % (11.7-14.2); RDW Standard Deviation 45.1 fL (35.1-46.3); Red Blood Cell Count 4.72 M/mm3 (3.80-5.20); White Blood Cell Count 8.36 K/mm3 (4.00-11.30)
[2023-02-02 04:46] LABS: Bun/Creatinine Ratio 17.2 (12.0-20.0); Creatinine, Blood 1.22 mg/dL (0.40-1.00); Potassium, Blood 3.5 mmol/L (3.5-5.5)
--- NOTE | 2023-02-02 05:23 | NUR ---
SHIFT SUMMARY NO ACUTE CHANGES SINCE ARRIVAL TO UNIT. PT A&O X4. ABLE TO MAKE NEEDS KNOWN. INDEPENDENT WITH ADL'S. SR ON MONITOR WITH HR 70'S. ON RA WHILE AWAKE WITH SPO2 >92%. PT PLACED ON 2L VIA NC FOR SLEEP D/T NOTED APNEA AND DESATTING TO THE 70-80'S BRIEFLY. NO FURTHER NOTED DESATTING SINCE O2 PLACED. BP STABLE. RIGHT CHEST WALL PACEMAKER SITE REMAINS UNCHANGED SINCE PREVIOUS ASSESSMENT. SLING IN PLACE. ICE PACK IN PLACE. MEDICATED PER EMAR FOR PAIN. BED IN LOWEST POSITION AND CALL LIGHT WITHIN REACH. THIS RN WILL REPORT TO ONCOMING DAYSHIFT RN.
[2023-02-02 07:39] VITALS: BP 146/75
[2023-02-02] MEDS ORDERED: CEPH500 PO (11:44)
--- NOTE | 2023-02-02 13:37 | NUR ---
DISCHARGE HOME PT A&O X4. VSS. SPO2 > 92% ON RA. MONITOR SHOWING SR, HR 70s W/ OCCASSIONAL PACING. NEW PACER TO RCW WNL. SITE WNL, DRESSING C/D/I. PT COMPLYING W/ POST PACER MOBILITY RESTRICTIONS. DISCHARGE INSTRUCTIONS REVIEWED W/ PT & SENT HOME W/ PT. PIVs REMOVED. PT TAKEN OUT BY WHEELCHAIR W/ BELONGINGS & FAMILY @ APPROX 1300.
== END 2023-02-02 13:15 | disposition home or self-care (01) ==
LOC: ER 14:10 → MEDS 14:11 → PCU 02-01 16:55
PROVIDERS: Internal Medicine; Physician Assistant; ADMIT Student in an Organized Health Care Education/Training Program
PROC: 0JH606Z Insertion of Pacemaker, Dual Chamber into Chest Subcutaneous Tissue and Fascia, Open Approach (ICD-10-PCS; principal; 2023-01-31)
PROC: 02HK3JZ Insertion of Pacemaker Lead into Right Ventricle, Percutaneous Approach (ICD-10-PCS; principal; 2023-01-31)
DX: I49.5 Sick sinus syndrome (principal); E87.6 Hypokalemia; I12.9 Hypertensive chronic kidney disease with stage 1 through stage 4 chronic kidney disease, or unspecified chronic kidney disease; N18.9 Chronic kidney disease, unspecified; E11.22 Type 2 diabetes mellitus with diabetic chronic kidney disease; E78.5 Hyperlipidemia, unspecified; E66.01 Morbid (severe) obesity due to excess calories; Z23 Encounter for immunization; Z79.84 Long term (current) use of oral hypoglycemic drugs; Z79.899 Other long term (current) drug therapy; Z86.16 Personal history of COVID-19; Z87.442 Personal history of urinary calculi; Z68.41 Body mass index [BMI] 40.0-44.9, adult
CPT/HCPCS: 33208; 36415; 71045; 76937; 80048; 80053; 82947; 83735; 84443; 85025; 93005; 93010; 93306; 96365; 96372; 96375; 96376; 99152; 99153; 99285-25; A9270; C1781; C1785; C1894; C1898; G0008; G0378; J0360; J0690; J1644; J1650; J2250; J3010; J3475; J7030; J7040; J7120; Q2036

== ENCOUNTER → 2023-03-27 | Outpatient (CLI) | payer OTHER ==
[~2023-03-27] MED LIST changes: +CEPH500 PO; +CHLO25B PO; +PIOG15 PO; +STEGLATRO15 MG PO
== END | disposition home or self-care (01) ==
LOC: LAB 13:33 → LAB SHORT 13:33
DX: N39.0 Urinary tract infection, site not specified (principal); T50.905A Adverse effect of unspecified drugs, medicaments and biological substances, initial encounter
CPT/HCPCS: 87077; 87086; 87186

== ENCOUNTER → 2023-08-08 | Outpatient (CLI) | payer OTHER ==
[2023-08-08 21:04] LABS: Bacterial Vaginosis PCR Negative (NEGATIVE)
[2023-08-08 21:08] LABS: Candida Group, PCR DETECTED (NOT DETECT); Candida glabrata-krusei, PCR DETECTED (NOT DETECT)
== END | disposition home or self-care (01) ==
LOC: LAB 15:33 → LAB SHORT 15:33
PROVIDERS: Advanced Practice Midwife
DX: N39.0 Urinary tract infection, site not specified (principal); N76.0 Acute vaginitis
CPT/HCPCS: 87077; 87086; 87186; 87481; 87661; 87801

== ENCOUNTER 2024-10-17 08:32 | Day surgery (SDC) | payer OTHER ==
[~2024-10-17] VITALS: Ht 165.1 cm; Wt 114.0 kg
[2024-10-17] MEDS ORDERED: SYMBICORT 80-10.2 GM (08:52)
[2024-10-17] MEDS ORDERED: ALOGLIPTIN25 M1 (08:52)
[2024-10-17] MEDS ORDERED: Crestor40 MG (08:53)
[2024-10-17] MEDS ORDERED: TRULICITY1.5 MG/0.1 (08:53)
[2024-10-17] MEDS ORDERED: Insulin Regular 100 UNIT/ML 10ML Vial ONE (09:18)
--- NOTE | 2024-10-17 09:23 | NUR ---
[facility]17/[address] [facility] [address] [facility] ORDER FOR 6 UNITS OF INSULIN FOR BLOOD SUGAR OF 358
[2024-10-17 14:53] VITALS: BP 141/69
--- NOTE | 2024-10-17 16:33 | NUR ---
10/17/24 163Jackeline Buchanan LATE ENTRY: DURING PROCEDURE 4 CC NACL WAS INJECTED BY NEEDLE INTO POLYP SITE FOR REMOVAL AT DESCENDING COLON POLYP AT 80 CM NICHOLE. DURING PROCEDURE 4 CC NACL WAS INJECTED BY NEEDLE INTO POLYP SITE FOR REMOVAL AT SIGMOID COLON POLYP AT 50 CM NICHOLE.
--- NOTE | 2024-10-17 16:40 | NUR ---
10/17/24 Jackeline Arambula 1106: RASHEED,RN NOTIFIED DR GRACE OF POST-PROCEDURE BLOOD SUGAR OF [address] GRACE NO NEW ORDERS, PATIENT OK TO DISCHARGE.
== END 2024-10-17 11:18 | disposition home or self-care (01) ==
LOC: ORSCSDS 08:32
PROVIDERS: Specialist
PROC: 0DBP8ZX Excision of Rectum, Via Natural or Artificial Opening Endoscopic, Diagnostic (ICD-10-PCS; principal; 2024-10-17 10:00)
PROC: 0DBM8ZX Excision of Descending Colon, Via Natural or Artificial Opening Endoscopic, Diagnostic (ICD-10-PCS; principal; 2024-10-17 10:00)
PROC: 0DBN8ZX Excision of Sigmoid Colon, Via Natural or Artificial Opening Endoscopic, Diagnostic (ICD-10-PCS; principal; 2024-10-17 10:00)
DX: K62.5 Hemorrhage of anus and rectum (principal); D12.4 Benign neoplasm of descending colon; D12.5 Benign neoplasm of sigmoid colon; D12.8 Benign neoplasm of rectum; K51.40 Inflammatory polyps of colon without complications; K64.8 Other hemorrhoids; K57.30 Diverticulosis of large intestine without perforation or abscess without bleeding; K21.9 Gastro-esophageal reflux disease without esophagitis; E11.40 Type 2 diabetes mellitus with diabetic neuropathy, unspecified; E66.01 Morbid (severe) obesity due to excess calories; Z68.41 Body mass index [BMI] 40.0-44.9, adult; E78.5 Hyperlipidemia, unspecified; Z79.84 Long term (current) use of oral hypoglycemic drugs; Z79.85 Long-term (current) use of injectable non-insulin antidiabetic drugs
CPT/HCPCS: 82947; 88305; C1889; J1815; J2704; J7120